=== PATIENT | female | born 1960 | race Caucasian/White ===

== ENCOUNTER → 2017-04-30 | Outpatient (CLI) | payer BC ==
[~2017-04-30] MED LIST: CANDESARTAN CIL32 MG PO; COQ-10100 MG PO; DAILY MULTIPLE1 EAC1 PO; DHEA25 MG PO; HYDROCHLOROTHIA25 MG PO; LIPITOR DPS20 MG PO; MIRALAX PACKET17 GM PO; NORVASC5 MG PO; OXY IR DPS5 MG PO; SENOKOT-S TABL1 EACH PO; TOPROL XL200 MG PO; TYLENOL325 MG PO; ULTRAM DPS50 MG PO; VITAMIN D2000 UNIT PO; WELLBUTRIN XL300 MG PO; XARELTO10 MG PO
== END | disposition home or self-care (01) ==
LOC: RAD.S 08:00
DX: T84.84XA Pain due to internal orthopedic prosthetic devices, implants and grafts, initial encounter (principal)

== ENCOUNTER → 2017-05-06 | Outpatient (CLI) | payer BC | END | disposition home or self-care (01) | LOC: PTH.S 09:00 | DX: T84.093A Other mechanical complication of internal left knee prosthesis, initial encounter (principal) ==